=== PATIENT | female | born 1970 | race Caucasian/White ===

== ENCOUNTER 2018-06-06 14:16 | Outpatient (CLI) | payer OTHER ==
[~2018-06-06 14:16] MED LIST: POLY119PG PO; SURFAK240 M1 PO; ULTRACET PO
[2018-06-16] MEDS ORDERED: ENDOMETRIN100 MG PO (12:33)
== END 2018-06-06 15:00 | disposition home or self-care (01) ==
LOC: MAMO-SONO 14:16
DX: Z12.31 Encounter for screening mammogram for malignant neoplasm of breast (principal); N60.11 Diffuse cystic mastopathy of right breast; N60.12 Diffuse cystic mastopathy of left breast; N95.1 Menopausal and female climacteric states; R10.31 Right lower quadrant pain; R10.32 Left lower quadrant pain

== ENCOUNTER → 2018-06-06 16:48 | Outpatient (CLI) | payer OTHER | END | disposition home or self-care (01) | LOC: LAB 07:21 | DX: D50.8 Other iron deficiency anemias (principal); E03.8 Other specified hypothyroidism; E78.3 Hyperchylomicronemia ==

== ENCOUNTER → 2018-06-16 11:29 | Outpatient (CLI) | payer OTHER ==
[~2018-06-16 11:29] MED LIST changes: +ENDOMETRIN100 MG PO
== END | disposition home or self-care (01) ==
LOC: EKG 11:29
DX: N64.82 Hypoplasia of breast (principal); I10 Essential (primary) hypertension

== ENCOUNTER 2018-06-20 06:20 | Day surgery (SDC) | payer OTHER | END 2018-06-20 12:00 | disposition home or self-care (01) | LOC: CIR.AMB 06:20 | PROVIDERS: Plastic Surgery | PROC: 0H0V0JZ Alteration of Bilateral Breast with Synthetic Substitute, Open Approach (ICD-10-PCS; principal; 2018-06-20 07:00) | DX: N64.82 Hypoplasia of breast (principal) ==

== ENCOUNTER → 2020-02-12 09:00 | Outpatient (CLI) | payer OTHER | END | disposition home or self-care (01) | LOC: LAB | PROVIDERS: ATTEND Specialist | DX: D50.8 Other iron deficiency anemias (principal); E03.8 Other specified hypothyroidism; E78.3 Hyperchylomicronemia; E16.2 Hypoglycemia, unspecified; E78.2 Mixed hyperlipidemia; Z79.890 Hormone replacement therapy ==

== ENCOUNTER 2020-02-12 12:18 | Outpatient (CLI) | payer OTHER | END 2020-02-12 12:20 | disposition home or self-care (01) | LOC: RAD 12:18 | PROVIDERS: ATTEND Specialist | DX: J20.0 Acute bronchitis due to Mycoplasma pneumoniae (principal); Z12.31 Encounter for screening mammogram for malignant neoplasm of breast; N60.11 Diffuse cystic mastopathy of right breast; N60.12 Diffuse cystic mastopathy of left breast ==

== ENCOUNTER 2021-06-09 13:50 | Outpatient (CLI) | payer OTHER | END 2021-06-09 13:53 | disposition home or self-care (01) | LOC: LAB 13:50 | PROVIDERS: ATTEND Specialist | DX: D50.9 Iron deficiency anemia, unspecified (principal); E03.9 Hypothyroidism, unspecified; E78.3 Hyperchylomicronemia ==

== ENCOUNTER 2021-06-09 14:03 | Outpatient (CLI) | payer OTHER | END 2021-06-09 14:05 | disposition home or self-care (01) | LOC: MAMO-SONO 14:03 | PROVIDERS: ATTEND Specialist | DX: N60.11 Diffuse cystic mastopathy of right breast (principal); N60.12 Diffuse cystic mastopathy of left breast; J15.7 Pneumonia due to Mycoplasma pneumoniae ==